=== PATIENT | male | born 1940 | race African-American/Black ===

== ENCOUNTER 2016-09-23 13:16 | Emergency (ER) | payer OTHER ==
[2016-09-23 14:24] LABS: Anion Gap 14 mmol/L (10-20); BUN (Urea Nitrogen) 26 mg/dL (8.4-25.7); Calc. Creatinine Clearance 0 mL/min (70-130); Calcium 7.5 mg/dL (7.8-10.44); Carbon Dioxide 20 mmol/L (23-31); Chloride 111 mmol/L (98-107); Estimated GFR-MDRD 22; Glucose 101 mg/dL (83-110); Sodium 141 mmol/L (136-145)
[2016-09-23 14:30] LABS: #Basophils 0.1 thou/uL (0.0-0.2); #Eosinphils 0.1 thou/uL (0.0-0.7); #Lymphocytes 2.3 thou/uL (1.20-3.40); #Monocytes 0.8 thou/uL (0.11-0.59); #Neutrophils 6.3 thou/uL (1.40-6.50); %Basophils 0.6 % (0.0-1.0); %Eosinophils 0.9 % (0.0-10.0); %Monocytes 8.1 % (0.0-10.0); %Neutrophils 66.5 % (42.0-75.0); Anisocytosis SLIGHT = 6-15 cells (100X) (0-5/hpf); Hemoglobin 9.3 g/dL (14.0-18.0); Hypochromia SLIGHT = 6-15 cells (100X) (0-5/hpf); MDiff Complete? YES; Mean Corpuscular HGB CONC 31.1 g/dL (32.0-36.0); Mean Corpuscular Hemoglobin 28.9 pg (27.0-31.0); Mean Platelet Volume 8.8 fL (7.4-10.4); PLT Morphology Comment Appears Decreased; Platelet Count 64 thou/uL (130-400); RBC Distribution Width 16.5 % (11.5-14.5); White Blood Cell (WBC) Count 9.5 thou/uL (4.8-10.8)
== END 2016-09-23 15:16 | disposition home or self-care (01) ==
LOC: NAV ERS 13:16
DX: E86.0 Dehydration (principal); I13.10 Hypertensive heart and chronic kidney disease without heart failure, with stage 1 through stage 4 chronic kidney disease, or unspecified chronic kidney disease; N18.3 Chronic kidney disease, stage 3 (moderate); I50.9 Heart failure, unspecified; M06.9 Rheumatoid arthritis, unspecified; F41.9 Anxiety disorder, unspecified; F17.210 Nicotine dependence, cigarettes, uncomplicated; Z79.891 Long term (current) use of opiate analgesic; Z79.52 Long term (current) use of systemic steroids; Z79.899 Other long term (current) drug therapy
CPT/HCPCS: 80048; 83880; 85025; 99284

== ENCOUNTER 2016-10-13 16:12 | Observation (INO) | payer MEDICARE, OTHER ==
[2016-10-13 17:15] LABS: #Eosinphils 0.1 thou/uL (0.0-0.7); #Lymphocytes 2.6 thou/uL (1.20-3.40); #Monocytes 0.5 thou/uL (0.11-0.59); #Neutrophils 1.5 thou/uL (1.40-6.50); %Basophils 0.8 % (0.0-1.0); %Eosinophils 1.8 % (0.0-10.0); %Lymphocytes 55.1 % (21.0-51.0); %Monocytes 10.3 % (0.0-10.0); Hemoglobin 7.4 g/dL (14.0-18.0); Mean Corpuscular Hemoglobin 28.6 pg (27.0-31.0); Mean Corpuscular Volume 92.4 fl (80.0-94.0); Mean Platelet Volume 8.6 fL (7.4-10.4); Platelet Count 116 thou/uL (130-400); RBC Distribution Width 15.9 % (11.5-14.5); Red Blood Cell (RBC) Count 2.57 mill/uL (4.70-6.10); White Blood Cell (WBC) Count 4.7 thou/uL (4.8-10.8)
[2016-10-13 17:28] LABS: ALT (SGPT) Less than 6 U/L (8-55); AST (SGOT) 17 U/L (5-34); Albumin 1.7 g/dL (3.4-4.8); Alkaline Phosphatase 102 U/L (40-150); Anion Gap 16 mmol/L (10-20); BUN (Urea Nitrogen) 16 mg/dL (8.4-25.7); Bilirubin, Total 0.5 mg/dL (0.2-1.2); CK (CPK) 130 U/L (30-200); Calc. Creatinine Clearance 0 mL/min (70-130); Calcium 7.4 mg/dL (7.8-10.44); Carbon Dioxide 17 mmol/L (23-31); Chloride 109 mmol/L (98-107); Estimated GFR-MDRD 24; Globulin 3.1 g/dL (2.4-3.5); Glucose 92 mg/dL (83-110); Potassium 4.4 mmol/L (3.5-5.1); Protein, Total 4.8 g/dL (5.8-8.1); Sodium 138 mmol/L (136-145)
[2016-10-13 17:41] LABS: CKMB 1.3 ng/mL (0-6.6); Troponin I 0.074 ng/mL (< 0.028)
[2016-10-13 18:16] LABS: Lipase Less than 4 U/L (8-78)
[2016-10-13 18:19] LABS: Bilirubin Negative (Negative); Blood, Urine Trace (Negative); Clarity Clear (Clear); Glucose, Urine (Dipstick) Negative (Negative); Leukocyte Negative (Negative); Nitrite Negative (Negative); Protein, Urine (Dipstick) Negative (Neg-Trace); Urobilinogen 0.2 mg/dL (0.2-1.0); pH, Urine 6.5 (5.0-9.0)
[2016-10-13 18:25] LABS: RBC/HPF 0-3 HPF (0-3); Squamous Epithelial 0-3 HPF (0-3)
[2016-10-13 18:34] LABS: INR-International Normal Ratio 1.4; PTT 40.9 SEC (22.9-36.1); Prothrombin Time 17.8 SEC (12.0-14.7)
--- NOTE | 2016-10-13 18:36 | RAD ---
CHEST 1 VIEW: Date: 10/13/16 COMPARISON: 09/25/16. HISTORY: Hypotension. FINDINGS: Atherosclerosis. Magnification of cardiac silhouette in part due to technique. Pulmonary vessels and hilum are normal. Diminished lung volumes. Chronic changes in lung bases are noted. No definite con solidation. No pneumothorax on this supine projection. IMPRESSION: 1. Diminished lung volumes. 2. Chronic changes lung bases. 3. Atherosclerosis. POS: [facility]
[2016-10-13] MEDS ORDERED: traMADol HCl 50 MG TAB PO PRN (19:53)
[2016-10-13] MEDS: Mirtazapine 15 MG TAB PO SCH (21:58)
[2016-10-13] MEDS: traMADol HCl 50 MG TAB PO PRN (21:58)
[2016-10-14 05:13] LABS: #Eosinphils 0.1 thou/uL (0.0-0.7); #Lymphocytes 1.3 thou/uL (1.20-3.40); #Monocytes 0.5 thou/uL (0.11-0.59); #Neutrophils 1.8 thou/uL (1.40-6.50); %Basophils 0.4 % (0.0-1.0); %Eosinophils 2.6 % (0.0-10.0); %Monocytes 12.7 % (0.0-10.0); %Neutrophils 49.3 % (42.0-75.0); Hemoglobin 9.1 g/dL (14.0-18.0); Mean Corpuscular HGB CONC 32.7 g/dL (32.0-36.0); Mean Corpuscular Hemoglobin 29.8 pg (27.0-31.0); Mean Platelet Volume 7.7 fL (7.4-10.4); Platelet Count 88 thou/uL (130-400); RBC Distribution Width 15.6 % (11.5-14.5); Red Blood Cell (RBC) Count 3.06 mill/uL (4.70-6.10); White Blood Cell (WBC) Count 3.7 thou/uL (4.8-10.8)
[2016-10-14 05:14] LABS: PLT Morphology Comment Appears Decreased; RBC Morphology Normal
[2016-10-14 05:15] LABS: MDiff Complete? YES
[2016-10-14 11:46] VITALS: BP 107/58; TEMP 96.4
--- NOTE | 2016-10-15 00:05 | SS ---
DATE OF ADMISSION: 10/13/2016 DATE OF DISCHARGE: 10/14/2016 PRINCIPAL DIAGNOSES: Hypertension and anemia. SECONDARY DIAGNOSES: 1. Chronic kidney disease stage III to IV. 2. Recent gastrointestinal bleed, but currently his stool test was negative. 3. Anemia, likely multifactorial. 4. Hypertension. 5. Legally blind secondary to macular degeneration. 6. Rheumatoid arthritis. COMPLICATIONS: None. ADVERSE REACTIONS: None. PROCEDURES: Blood transfusion. CONSULTATIONS: None. HOSPITAL COURSE: Patient presented to the emergency room yesterday with fatigue, tiredness and hypo tension. He was given 500 mL of normal saline after which his systolic blood pressure went into the 90s. He also felt better. His stool occult was negative. He apparently recently was started on c iprofloxacin by his urologist and had significant diarrhea and his sister had to stop the antibiotic and after that his diarrhea is better. He apparently has not been eating or drinking well. He den ies any chest pain or shortness of breath. He was also noticed to have a hemoglobin in the 7s and w ith him having lightheadedness and dizziness, it was felt prudent to admit him to the hospital and t ransfused 1 unit. This morning he feels better. He denies any chest pain or shortness of breath. Denies any further diarrhea, denies any fever or chills. His sister is in the room. He states that he feels back to baseline and wants to go home. I advised him he needs to follow up with Urology a nd Nephrology on an outpatient basis. PAST MEDICAL HISTORY: 1. Hypertension. 2. Chronic kidney disease stage IV. 3. Gastroesophageal reflux disease. 4. Peptic ulcer disease with history of recent gastrointestinal bleed. 5. Rheumatoid arthritis. 6. Gout. 7. Degenerative joint disease. 8. Benign prostatic hypertrophy. 9. Chronic low back pain. 10. Legally blind. 11. Sensorineural deafness. PAST SURGICAL HISTORY: 1. Ventral hernia repair. 2. Right knee surgery. 3. Back surgery. 4. EGD and colonoscopy. ALLERGIES: No known drug allergies. FAMILY HISTORY: Positive for diabetes and hypertension in his mother. Father had heart disease. PSYCHOSOCIAL HISTORY: He has history of alcohol abuse. He quit smoking a while ago, he has more th an a [id number] history of smoking. His sister takes care of him. Denies any IV drug abuse. REVIEW OF SYSTEMS: CARDIOVASCULAR: Denies any chest pain, shortness of breath, palpitations, paroxysmal nocturnal dysp carlos eduardo, orthopnea, pedal edema. RESPIRATORY: Denies any chronic cough, expectoration or pleuritic type chest pain. GASTROINTESTINAL: No improved diarrhea, no nausea, vomiting, hematemesis, melena, hematochezia. GENITOURINARY: He does have some hesitancy and weak stream. CENTRAL NERVOUS SYSTEM: Generalized weakness. PHYSICAL EXAMINATION: GENERAL: Pleasant 76-year-old -[place] male resting comfortably in no acute distress. He r esponds appropriately to questions. He is legally blind. VITAL SIGNS: He is afebrile, heart rate is 82, respirations are 20, oxygen saturation is 98% on kaitlin m air, blood pressure 107/58. HEENT: Normocephalic, atraumatic. CARDIOVASCULAR: S1, S2 plus. RESPIRATORY: Normal vesicular breath sounds. ABDOMEN: Soft, nontender, bowel sounds heard in all quadrants. EXTREMITIES: Without cyanosis or clubbing. Degenerative joint disease is present. CENTRAL NERVOUS SYSTEM: Generalized weakness. LABORATORY VALUES: Yesterday on admission, his white count was 4.7, H\T\H 7.4 and 23.7. Today, H\T \H is 9.1 and 27.8 after 1 unit of blood transfusion. Chemistry shows a sodium 138, potassium 4.4, BUN and creatinine is 16 and 3.1. DISCHARGE MEDICATIONS: 1. Remeron 15 mg p.o. at bedtime. 2. Tramadol 50 mg p.o. t.i.d. 3. Vitamin D3 of 400 units b.i.d. 4. Cranberry tablet daily. 5. B12 injection once a month. 6. Uloric 40 mg daily. 7. Iron sulfate 1 tablet b.i.d. 8. Finasteride 5 mg daily. 9. Folic acid 1 mg daily. 10. Pantoprazole 40 mg b.i.d. 11. Tamsulosin 0.4 mg daily. 12. Thiamine 100 mg daily. I told him to stop the amlodipine for now and then the carvedilol to be given only if the systolic b lood pressure is more than 140. I advised the sister that if his blood pressure increases to the po int that he needs to take the carvedilol daily and if his systolic blood pressure still remains more than 140, then to start back on the amlodipine. He is to be on a heart healthy, renal diet. He is to follow up in my office in 7-10 days. He was reminded to outpatient follow with his urologist an d his frozen foods manager, again reminded him that he has not been compliant with his visits to me, I last saw him in May and informed him and his sister of the risks of noncompliance. Total time spent with the patient including reviewing old records and everything is 45 minutes.
== END 2016-10-14 14:10 | disposition home or self-care (01) ==
LOC: NAV ERS 16:12 → NAV ACUTE 19:24
PROVIDERS: ADMIT Internal Medicine; ATTEND Internal Medicine
PROC: 30233N1 Transfusion of Nonautologous Red Blood Cells into Peripheral Vein, Percutaneous Approach (ICD-10-PCS; principal; 2016-10-13)
DX: D64.9 Anemia, unspecified (principal); I12.9 Hypertensive chronic kidney disease with stage 1 through stage 4 chronic kidney disease, or unspecified chronic kidney disease; N18.4 Chronic kidney disease, stage 4 (severe); H35.30 Unspecified macular degeneration; M06.9 Rheumatoid arthritis, unspecified; K21.9 Gastro-esophageal reflux disease without esophagitis; Z87.11 Personal history of peptic ulcer disease; M19.90 Unspecified osteoarthritis, unspecified site; N40.0 Benign prostatic hyperplasia without lower urinary tract symptoms; Z79.899 Other long term (current) drug therapy
CPT/HCPCS: 36415; 36430; 51701; 71010; 80053; 81003; 81015; 82274; 82550; 82553; 83690; 83880; 84484; 85025; 85610; 85730; 86850; 86900; 86901; 93005; 96360; G0378; P9016